=== PATIENT | female | born 1995 | race Caucasian/White ===

== ENCOUNTER 2017-10-08 13:10 | Emergency (ER) | payer OTHER ==
[~2017-10-08] VITALS: Ht 163.8 cm; Wt 51.5 kg
[2017-10-08 13:18] VITALS: BP 113/76
--- NOTE | 2017-10-08 13:28 | NUR ---
21F BIB FAMILY C/O LEFT 4TH AND 5TH DIGIT HAND LACERATION X 1115 TODAY; OPEN WOUND, NO ACTIVE BLEEDING NOTED TO SITES AT THIS TIME; LEFT RADIAL PULSE +3, LEFT CAP REFILL IMMEDIATE, NO LOSS OF SENSATION TO LEFT HAND AT THIS TIME; PT AA&OX4, PERRLA, BL LUNG SOUNDS CLEAR, RR EVEN/UNLABORED, SKIN IS WARM/DRY AT THIS TIME; STEADY GAIT; PT RESTING IN BED WITH HOB ELEVATED AND IN LOWEST POSITION; POSITIONED FOR COMFORT; ER MD MADE AWARE OF STATUS. WILL CONTINUE TO MONITOR.
--- NOTE | 2017-10-08 13:40 | NUR ---
ER MD DR. SOUZA EVALUATING PT AT BEDSIDE.
[2017-10-08] MEDS: LIDOCAINE 1% ***ER ONLY *** 10 MG/ML VIAL INJ ONE (14:13)
[2017-10-08 14:38] VITALS: BP 117/71
--- NOTE | 2017-10-08 14:38 | NUR ---
Patient discharged with v/s stable. Written and verbal after care instructions given and explained. Patient verbalized understanding. Ambulatory with steady gait. All questions addressed prior to discharge. Advised to follow up with PMD.
== END 2017-10-08 14:38 | disposition home or self-care (01) ==
LOC: MED 13:10
DX: S61.214A Laceration without foreign body of right ring finger without damage to nail, initial encounter (principal); W26.0XXA Contact with knife, initial encounter; Y93.89 Activity, other specified; Y92.218 Other school as the place of occurrence of the external cause; Y99.8 Other external cause status
CPT/HCPCS: 12001; 99283; J2001